=== PATIENT | female | born 1965 ===

== ENCOUNTER 2019-10-13 11:14 | Emergency (ER) | payer SELFPAY ==
--- NOTE | 2019-10-13 12:37 | Emergency Department Report ---
Blank Doc - Documentation Documentation: 53-year-old female that presents with worsening headache, dizziness, and weakn ess x several days. Tachycardia and febrile in the ED. Exam: neurological exam within normal limits. no stroke symptoms. This initial assessment/diagnostic orders/clinical plan/treatment(s) is/are subject to change based on patient's health status, clinical progression and re- assessment by fellow clinical providers in the ED. Further treatment and workup at subsequent clinical providers discretion. Patient/guardians urged not to elope from the ED as their condition may be serious if not clinically assessed and managed. Initial orders include: 1- Patient sent to MAIN ED for further evaluation and treatment 2- labs 3- CT head
--- NOTE | 2019-10-13 13:07 | Cat Scan Report ---
CT head/brain wo con INDICATION: headache. TECHNIQUE: Routine CT head without contrast. All CT scans at this location are performed using CT dos e reduction for ALARA by means of automated exposure control. COMPARISON: None. FINDINGS: BRAIN / INTRACRANIAL CONTENTS: No acute hemorrhage, mass effect, midline shift, or hydrocephalus. No appreciable acute large territorial or lacunar infarct. No chronic infarct or focal atrophy. Normal b rain volume and ventricular/sulcal size for age. ORBITS: No significant abnormality of visualized orbits. SINUSES / MASTOIDS: No significant abnormality of visualized sinuses and mastoid air cells. ADDITIONAL FINDINGS: None. IMPRESSION: 1. No acute intracranial abnormality. Signer Name: Karthik Abreu MD Signed: 10/13/2019 1:02 PM Workstation Name: [id number]
[2019-10-13 14:02] LABS: Basophils # (Auto) 0.1 K/mm3 (0.0-0.1); Basophils % (Auto) 1.1 % (0.0-1.8); Eosinophils # (Auto) 0.2 K/mm3 (0.0-0.4); Eosinophils % (Auto) 2.6 % (0.0-4.3); Hematocrit 34.7 % (30.3-42.9); Hemoglobin 11.4 gm/dl (10.1-14.3); Lymphocytes # (Auto) 2.8 K/mm3 (1.2-5.4); Lymphocytes % (Auto) 37.2 % (13.4-35.0); Mean Corpuscular HGB Conc 33 % (30-34); Mean Corpuscular Volume 97 fl (79-97); Monocytes % (Auto) 12.7 % (0.0-7.3); Platelet Count 333 K/mm3 (140-440); Red Blood Count 3.59 M/mm3 (3.65-5.03); Red Cell Distribution Width 16.3 % (13.2-15.2)
[2019-10-13 15:00] LABS: Alanine Aminotransferase 17 units/L (7-56); Albumin 4.6 g/dL (3.9-5); Blood Urea Nitrogen 9 mg/dL (7-17); Hemolysis Index 17
[2019-10-13 15:03] LABS: BUN/Creatinine Ratio 23
--- NOTE | 2019-10-13 22:33 | Emergency Department Report ---
ED Headache HPI - General Chief Complaint: Headache Stated Complaint: HEADACHE/NOSE BLEEDS Time Seen by Provider: 10/13/19 12:36 - History of Present Illness Initial Comments: pt is a 53 y/o aaf with hx of ETOH Abuse and GERD who presents for headache with nosebleed x this am. Pt states last headache and nose bleed this am appr oximately 10 hr ago, pt denies fever or chills , no n/v, no dizziness, no light headedness, no cp. no sob, cough, fever or chills. pt is currently being treated at [facility] for ETOH abuse. pt is currently a/o x 3, ambulatory with steady gait, pt denies tremor, hallucinations, SI , HI or agitation. Allergies/Adverse Reactions: Allergies No Known Allergies Allergy (Unverified 10/13/19 11:23) ED Review of Systems ROS: Stated complaint: HEADACHE/NOSE BLEEDS Other details as noted in HPI Constitutional: denies: chills, fever Eyes: denies: eye pain, eye discharge, vision change ENT: epistaxis. denies: ear pain, throat pain, congestion Respiratory: denies: cough, shortness of breath, wheezing Cardiovascular: denies: chest pain, palpitations Endocrine: no symptoms reported Gastrointestinal: denies: abdominal pain, nausea, vomiting, diarrhea Genitourinary: denies: urgency, dysuria, discharge Musculoskeletal: denies: back pain, joint swelling, arthralgia Skin: denies: rash, lesions Neurological: headache. denies: weakness, numbness, paresthesias, confusion, vertigo Psychiatric: denies: anxiety, depression, auditory hallucinations, visual hallucinations, homicidal thoughts, suicidal thoughts Hematological/Lymphatic: denies: easy bleeding, easy bruising ED Past Medical Hx - Past Medical History Previous Medical History?: Yes Hx GERD: Yes - Surgical History Past Surgical History?: Yes Additional Surgical History: partial hysterectomy - Social History Smoking Status: Current Every Day Smoker Substance Use Type: Alcohol ED Physical Exam - General Limitations: No Limitations General appearance: alert, in no apparent distress - Head Head exam: Present: atraumatic, normocephalic - Eye Eye exam: Present: normal appearance, PERRL, EOMI Pupils: Absent: normal accommodation - ENT ENT exam: Present: normal orophraynx, mucous membranes moist, TM's normal bilaterally, normal external ear exam - Expanded ENT Exam Expanded Ear exam: Present: other (nares patent no epistaxis ) Throat exam: Positive: normal inspection. Negative: tonsillar erythema, t onsillomegaly, tonsillar exudate - Neck Neck exam: Present: normal inspection, full ROM. Absent: tenderness, lymphadenopathy - Respiratory Respiratory exam: Present: normal lung sounds bilaterally. Absent: respiratory distress, wheezes, stridor, chest wall tenderness - Cardiovascular Cardiovascular Exam: Present: regular rate, normal rhythm, normal heart sounds. Absent: systolic murmur, diastolic murmur, rubs, gallop - GI/Abdominal GI/Abdominal exam: Present: soft, normal bowel sounds. Absent: distended, tenderness, guarding, rebound, rigid, bruit, hernia - Rectal Rectal exam: Present: deferred - Extremities Exam Extremities exam: Present: normal inspection - Back Exam Back exam: Present: normal inspection, full ROM. Absent: CVA tenderness (R), CVA tenderness (L), vertebral tenderness - Neurological Exam Neurological exam: Present: alert, oriented X3, CN II-XII intact, normal gait - Expanded Neurological Exam Expanded Patient oriented to: Present: person, place, time Speech: Present: fluid speech Motor strength exam: RUE: 5, LUE: 5, RLE: 5, LLE: 5 Best Eye Response (Alan): (4) open spontaneously Best Motor Response ([place]): (6) obeys commands Best Verbal Response (Alan): (5) oriented [place] Total: 15 - Psychiatric Psychiatric exam: Present: normal affect, normal mood - Skin Skin exam: Present: warm, dry, intact, normal color. Absent: rash ED Course Vital Signs 10/13/19 12:14 Temperature 99.9 F H Pulse Rate 103 H Respiratory 16 Rate Blood Pressure 117/96 [Left] O2 Sat by Pulse 99 Oximetry ED Medical Decision Making - Lab Data Result diagrams: 10/13/19 13:14 10/13/19 13:14 Labs 10/13/19 10/13/19 13:14 13:14 WBC 7.6 RBC 3.59 L Hgb 11.4 Hct 34.7 MCV 97 MCH 32 MCHC 33 RDW 16.3 H Plt Count 333 Lymph % (Auto) 37.2 H Reeves % (Auto) 12.7 H Eos % (Auto) 2.6 Baso % (Auto) 1.1 Lymph # 2.8 Reeves # 1.0 H Eos # 0.2 Baso # 0.1 Seg Neutrophils % 46.4 Seg Neutrophils # 3.5 Sodium 140 Potassium 4.7 Chloride 100.9 Carbon Dioxide 22 Anion Gap 22 BUN 9 Creatinine 0.4 L Estimated GFR > 60 BUN/Creatinine Ratio 23 Glucose 91 Calcium 10.0 Total Bilirubin 0.20 AST 20 ALT 17 Alkaline Phosphatase 74 Total Protein 7.0 Albumin 4.6 Albumin/Globulin Ratio 1.9 - Radiology Data Findings Reporting MD: Karthik Abreu Dictation Time: October 13, 2019 12:02 Lead Web Developer: Not available [employer] Date: CT head/brain wo con INDICATION: headache. TECHNIQUE: Routine CT head without contrast. All CT scans at this location are performed using CT dose reduction for ALARA by means of automated exposure control. COMPARISON: None. FINDINGS: BRAIN / INTRACRANIAL CONTENTS: No acute hemorrhage, mass effect, midline shift, or hydrocephalus. No appreciable acute large territorial or lacunar infarct. No chronic infarct or focal atrophy. Normal brain volume and ventricular/sulcal size for age. ORBITS: No significant abnormality of visualized orbits. SINUSES / MASTOIDS: No significant abnormality of visualized sinuses and mastoid air cells. ADDITIONAL FINDINGS: None. IMPRESSION: 1. No acute intracranial abnormality. Signer Name: Karthik Abreu MD Signed: 10/13/2019 12:02 PM Workstation Name: [id number] - Medical Decision Making CT Head normal no mass, no bleed, no soft tissue abnormality, There is no epistaxis, no fever no chills, no n/v, headache is improved pt remains a/o x 3 ambulatory with steady gait. There are no symptoms of withdrawal noted at this time. plan: Tylenol and benadryl po prn headache follow up with primary care doctor in 2-3 days , return to emergency if symptoms worsen. Critical care attestation.: If time is entered above; I have spent that time in minutes in the direct care of this critically ill patient, excluding procedure time. ED Disposition Clinical Impression: Headache Qualifiers: Headache type: unspecified Headache chronicity pattern: acute headache Intractability: not intractable Qualified Code(s): R51 - Headache Disposition: DC-01 TO HOME OR SELFCARE Is pt being admited?: No Does the pt Need Aspirin: No Condition: Stable Instructions: Acute Headache (ED) Additional Instructions: take otc tylenol and benadryl by mouth every 8 hours as needed for headache. Follow up with your doctor in 2-3 days. Referrals: [facility] [Provider Group] - 3-5 Days Forms: Work/School Release Form(ED) Time of Disposition: 22:41
[2019-10-13] MEDS ORDERED: ACETAMINOPHEN 500 MG TAB PO ONE (22:43)
[2019-10-13] MEDS ORDERED: HYDROcodone/ACETAMINOPHEN 5-325 MG TAB PO ONE (22:46)
[2019-10-14 03:55] VITALS: BP 163/119
== END 2019-10-13 23:00 | disposition home or self-care (01) ==
LOC: ED 11:14
DX: R51 Headache (principal); K21.9 Gastro-esophageal reflux disease without esophagitis; F17.200 Nicotine dependence, unspecified, uncomplicated; Z90.710 Acquired absence of both cervix and uterus
CPT/HCPCS: 36415; 70450; 80053; 85025